=== PATIENT | female | born 1940 | race Caucasian/White ===

== ENCOUNTER 2016-07-07 06:48 | Emergency (ER) | payer MEDICARE, MEDICAID ==
[2016-07-07 08:17] LABS: BASO # 0.1 K/mm3 (0.0-0.2); EOS # 0.5 K/mm3 (0.0-0.50); EOS % 5.5 % (0.0-3.0); LARGE UNSTAINED CELL # 0.2 K/mm3 (0.0-0.4); LARGE UNSTAINED CELL % 2.6 % (0.0-4.0); LYMPH # 2.3 K/mm3 (1.5-4.5); LYMPH % 24.1 % (24.0-44.0); MEAN CORPUSCULAR HEMOGLOBIN 29.3 pg (27.0-33.0); MEAN CORPUSCULAR VOLUME 94.3 fl (80.0-96.0); MONO # 0.5 K/mm3 (0.0-0.8); MONO % 5.3 % (0.0-5.0); NEUTROPHILS # 5.3 K/mm3 (1.8-7.7); NEUTROPHILS % 61.6 % (36.0-66.0); PLATELET COUNT, AUTOMATED 350 k/mm3 (150-450); RED CELL DISTRIBUTION WIDTH 13.3 % (11.5-14.5); WHITE BLOOD COUNT 8.6 K/mm3 (4.0-10.0)
[2016-07-07 08:34] LABS: ANION GAP 7 MEQ/L (8-16); BLOOD UREA NITROGEN 20 MG/DL (7-18); CALCIUM LEVEL 9.4 MG/DL (8.8-10.2); CARBON DIOXIDE LEVEL 30 MEQ/L (21-32); CHLORIDE LEVEL 105 MEQ/L (98-107); CREATININE FOR GFR 0.85 MG/DL (0.55-1.02); GLOMERULAR FILTRATION RATE > 60.0 (>39); GLUCOSE, FASTING 104 MG/DL (83-110); POTASSIUM SERUM 4.5 MEQ/L (3.5-5.1); SODIUM LEVEL 142 MEQ/L (136-145)
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
--- NOTE | 2016-07-07 09:32 | REP ---
LUMBAR SPINE COMPLETE: 07/07/2016 CLINICAL HISTORY: Low back pain. FINDINGS: There were no prior studies. The five views demonstrate grade 2 compressions of L3 and L5. There is grade 1 inferior endplate compression of L1. Age of these is unknown but I suspect old sclerotic endplates. There is facet arthritis at L4-5 and L5-S1, less at L3-4. The disc spaces are narrowed at all levels, sparing the L3-4 level and L1-2. Straightening of the spine with loss of lordosis noted. There is no spondylolysis or spondylolisthesis. Bilateral hip arthritis noted, right much greater than left, SI joints sclerotic at the iliac margins. Sacral ala and foramina intact. IMPRESSION: 1. Diffuse degenerative disc changes and facet arthritis as described with grade 2 compressions of L3 and L5. Minimal endplate grade 1 compression of L1. No prior studies to verify age but the sclerosis of the endplates suggest that these may be old. No spondylolysis or spondylolisthesis. Signed by Del Reagan MD 07/07/2016 09:37 A
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
== END 2016-07-07 09:14 | disposition home or self-care (01) ==
LOC: M ED 06:48
DX: M54.32 Sciatica, left side (principal); I10 Essential (primary) hypertension; J44.9 Chronic obstructive pulmonary disease, unspecified; K21.9 Gastro-esophageal reflux disease without esophagitis; E03.9 Hypothyroidism, unspecified; Z85.42 Personal history of malignant neoplasm of other parts of uterus; Z79.52 Long term (current) use of systemic steroids; Z79.899 Other long term (current) drug therapy; Z88.5 Allergy status to narcotic agent; Z88.6 Allergy status to analgesic agent

== ENCOUNTER 2016-08-14 18:04 | Emergency (ER) | payer MEDICARE, MEDICAID ==
[2016-08-14 19:18] LABS: BASO % 0.8 % (0.0-1.0); EOS % 0.7 % (0.0-3.0); LARGE UNSTAINED CELL # 0.2 K/mm3 (0.0-0.4); LARGE UNSTAINED CELL % 4.4 % (0.0-4.0); LYMPH # 1.4 K/mm3 (1.5-4.5); LYMPH % 34.8 % (24.0-44.0); MEAN CORPUSCULAR HEMOGLOBIN 29.3 pg (27.0-33.0); MEAN CORPUSCULAR HGB CONC 32.7 g/dl (32.0-36.5); MEAN CORPUSCULAR VOLUME 89.7 fl (80.0-96.0); MONO # 0.3 K/mm3 (0.0-0.8); MONO % 6.6 % (0.0-5.0); NEUTROPHILS # 2.2 K/mm3 (1.8-7.7); NEUTROPHILS % 52.8 % (36.0-66.0); PLATELET COUNT, AUTOMATED 266 k/mm3 (150-450); RED CELL DISTRIBUTION WIDTH 12.7 % (11.5-14.5); WHITE BLOOD COUNT 4.2 K/mm3 (4.0-10.0)
[2016-08-14] MEDS ORDERED: dexameTHASONE 4 MG/ML 1ML VIAL (J1100) As Ordered ONE (19:20)
[2016-08-14 19:26] LABS: ALBUMIN 3.6 GM/DL (3.2-5.2); ALBUMIN/GLOBULIN RATIO 0.88 (1.00-1.93); ALKALINE PHOSPHATASE 160 U/L (45-117); ALT/SGPT 74 U/L (12-78); AMYLASE 62 U/L (25-115); ANION GAP 10 MEQ/L (8-16); AST/SGOT 107 U/L (15-37); BILIRUBIN,DIRECT 0.1 MG/DL (0.0-0.2); BILIRUBIN,TOTAL 0.4 MG/DL (0.2-1.0); BLOOD UREA NITROGEN 16 MG/DL (7-18); CALCIUM LEVEL 8.8 MG/DL (8.8-10.2); CARBON DIOXIDE LEVEL 27 MEQ/L (21-32); CHLORIDE LEVEL 104 MEQ/L (98-107); CREATININE FOR GFR 0.85 MG/DL (0.55-1.02); GLOMERULAR FILTRATION RATE > 60.0 (>39); GLUCOSE, FASTING 104 MG/DL (83-110); POTASSIUM SERUM 3.5 MEQ/L (3.5-5.1); SODIUM LEVEL 141 MEQ/L (136-145); TOTAL PROTEIN 7.7 GM/DL (6.4-8.2)
[2016-08-14] MEDS ORDERED: IPRATROPIUM 0.5MG/ALBUTEROL 2.5MG INH SOL UD 3ML (DUONEB)(J7620) As Ordered ONE (19:48)
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
--- NOTE | 2016-08-15 07:06 | REP ---
Chest x-ray: Two views. History: Cough. Findings: The lungs are symmetrically aerated and clear. Pleural angles are sharp. Heart size is normal. Pulmonary vasculature is not increased. There is an S-shaped mild thoracic scoliotic curvature. Degenerative changes are noted in the thoracic spine as well. Impression: No active cardiopulmonary disease. Signed by Deondre Ruggiero MD 08/15/2016 08:31 A
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
== END 2016-08-14 22:09 | disposition home or self-care (01) ==
LOC: M ED 18:04
DX: J20.9 Acute bronchitis, unspecified (principal); K52.9 Noninfective gastroenteritis and colitis, unspecified; I10 Essential (primary) hypertension; K21.9 Gastro-esophageal reflux disease without esophagitis; E03.9 Hypothyroidism, unspecified; J44.9 Chronic obstructive pulmonary disease, unspecified; Z85.42 Personal history of malignant neoplasm of other parts of uterus; Z92.240 Personal history of inhaled steroid therapy; Z79.899 Other long term (current) drug therapy; Z88.5 Allergy status to narcotic agent
CPT/HCPCS: 36415; 71020; 80048; 80076; 82150; 83605; 83690; 85025; 94640; 96361; 96374; 99284; J1100

== ENCOUNTER → 2016-12-08 | Outpatient (REF) | payer MEDICARE, MEDICAID ==
[2016-12-08 18:33] LABS: BASO % 0.4 % (0.0-1.0); EOS # 0.2 K/mm3 (0.0-0.50); EOS % 3.9 % (0.0-3.0); LARGE UNSTAINED CELL # 0.1 K/mm3 (0.0-0.4); LARGE UNSTAINED CELL % 1.9 % (0.0-4.0); LYMPH # 1.4 K/mm3 (1.5-4.5); LYMPH % 24.7 % (24.0-44.0); MEAN CORPUSCULAR HEMOGLOBIN 30.5 pg (27.0-33.0); MEAN CORPUSCULAR VOLUME 92.4 fl (80.0-96.0); MONO # 0.3 K/mm3 (0.0-0.8); MONO % 5.9 % (0.0-5.0); NEUTROPHILS # 3.4 K/mm3 (1.8-7.7); NEUTROPHILS % 63.2 % (36.0-66.0); PLATELET COUNT, AUTOMATED 303 k/mm3 (150-450); RED CELL DISTRIBUTION WIDTH 12.9 % (11.5-14.5); WHITE BLOOD COUNT 5.4 K/mm3 (4.0-10.0)
[2016-12-08 18:52] LABS: ANION GAP 8 MEQ/L (8-16); BLOOD UREA NITROGEN 20 MG/DL (7-18); CALCIUM LEVEL 9.8 MG/DL (8.8-10.2); CARBON DIOXIDE LEVEL 26 MEQ/L (21-32); CHLORIDE LEVEL 107 MEQ/L (98-107); CREATININE FOR GFR 0.77 MG/DL (0.55-1.02); GLOMERULAR FILTRATION RATE > 60.0 (>39); GLUCOSE, FASTING 85 MG/DL (83-110); SODIUM LEVEL 141 MEQ/L (136-145); T UPTAKE 32 % (30-39); THYROXINE (T4) 6.9 UG/DL (4.5-12.0)
[2016-12-08 18:53] LABS: POTASSIUM SERUM 5.3 MEQ/L (3.5-5.1)
== END ==
LOC: M LAB REF 16:35
PROVIDERS: ATTEND Physician Assistant
DX: I10 Essential (primary) hypertension (principal)

== ENCOUNTER 2017-03-13 13:39 | Emergency (ER) | payer MEDICARE, MEDICAID ==
[~2017-03-13] VITALS: Ht 157.5 cm; Wt 77.3 kg
[2017-03-13] MEDS ORDERED: PROAAER10 (13:55)
[2017-03-13] MEDS ORDERED: METO10TA2 (13:55)
[2017-03-13] MEDS ORDERED: LISI10TA4 (13:55)
[2017-03-13] MEDS ORDERED: OMEP20CA3 (13:55)
[2017-03-13 16:34] VITALS: BP 141/78
--- NOTE | 2017-03-13 16:48 | REP ---
Right ribs and PA chest: Right ribs four views: There is no rib fracture or other rib abnormality. 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 PA chest: Comparison is 08/14/2016. There is no pneumothorax, hemothorax or pulmonary contusion. Lung lozano are clear. Cardiac size is normal. The hali, mediastinum, bony thorax are otherwise unremarkable. Impression: Negative PA chest. Signed by Shawn Briseno MD 03/13/2017 04:09 P
== END 2017-03-13 16:35 | disposition home or self-care (01) ==
LOC: M ED 13:39
DX: R07.89 Other chest pain (principal); I10 Essential (primary) hypertension; Z87.820 Personal history of traumatic brain injury; Z85.42 Personal history of malignant neoplasm of other parts of uterus; Z79.899 Other long term (current) drug therapy

== ENCOUNTER → 2017-07-06 | Outpatient (REF) | payer MEDICARE ==
[2017-07-06 15:32] LABS: BASO % 0.3 % (0.0-1.0); EOS # 0.3 10^3/uL (0.0-0.50); EOS % 4.1 % (0.0-3.0); HEMATOCRIT 43.8 % (36.0-47.0); HEMOGLOBIN 13.9 g/dl (12.0-16.0); IMMATURE GRANULOCYTE % 0.3 % (0-0); LYMPH # 2.2 10^3/uL (1.5-4.5); LYMPH % 30.6 % (24.0-44.0); MEAN CORPUSCULAR HEMOGLOBIN 29.7 pg (27.0-33.0); MEAN CORPUSCULAR HGB CONC 31.7 g/dl (32.0-36.5); MEAN CORPUSCULAR VOLUME 93.6 fl (80.0-96.0); MONO # 0.6 10^3/uL (0.0-0.8); MONO % 8.8 % (0.0-5.0); NEUTROPHILS # 4.1 10^3/uL (1.8-7.7); NEUTROPHILS % 55.9 % (36.0-66.0); PLATELET COUNT, AUTOMATED 342 10^3/uL (150-450); RED BLOOD COUNT 4.68 10^6/uL (4.00-5.40); RED CELL DISTRIBUTION WIDTH 12.7 % (11.5-14.5); WHITE BLOOD COUNT 7.3 10^3/uL (4.0-10.0)
[2017-07-06 16:26] LABS: ALBUMIN/GLOBULIN RATIO 1.21 (1.00-1.93); ALKALINE PHOSPHATASE 132 U/L (45-117); ALT/SGPT 37 U/L (12-78); ANION GAP 8 MEQ/L (8-16); AST/SGOT 20 U/L (7-37); BILIRUBIN,TOTAL 0.4 MG/DL (0.2-1.0); BLOOD UREA NITROGEN 21 MG/DL (7-18); CALCIUM LEVEL 9.1 MG/DL (8.8-10.2); CARBON DIOXIDE LEVEL 30 MEQ/L (21-32); CHLORIDE LEVEL 106 MEQ/L (98-107); CHOLESTEROL LEVEL 239 MG/DL (<200); CHOLESTEROL RISK RATIO 3.983 (<5); CREATININE FOR GFR 0.87 MG/DL (0.55-1.02); FREE T4 0.81 NG/DL (0.76-1.46); GLOMERULAR FILTRATION RATE > 60.0 (>39); GLUCOSE, FASTING 97 MG/DL (83-110); HDL CHOLESTEROL 60 MG/DL (>40); LDL CHOLESTEROL 151.6 MG/DL (<100); NON-HDL-C 179 MG/DL; POTASSIUM SERUM 4.5 MEQ/L (3.5-5.1); SODIUM LEVEL 144 MEQ/L (136-145); TOTAL PROTEIN 7.3 GM/DL (6.4-8.2); TRIGLYCERIDES LEVEL 137 MG/DL (<150)
== END ==
LOC: M SFHCSACK 09:08
DX: I10 Essential (primary) hypertension (principal); Z13.220 Encounter for screening for lipoid disorders; E03.9 Hypothyroidism, unspecified; Z13.21 Encounter for screening for nutritional disorder
CPT/HCPCS: 84443

== ENCOUNTER → 2017-08-29 | Day surgery (SDC) | payer MEDICARE, MEDICAID ==
[~2017-08-29] MED LIST: ACETAMINOPHEN 325 MG TAB PO; AcetaZOLAMIDE 500 MG ER CAP PO; CYCLOPENTOLATE 2% OPHTH SOLN 2ML BTL As Ordered; KETOROLAC 0.5% OPHTH SOLN OD; LIDOCAINE 1% MDV 20ML VIAL SQ; MIDAZOLAM INJ 2 MG/2 ML VIAL (J2250) As Ordered; OFLOXACIN 0.3 % (OCUFLOX) OPTH SOL 5ML As Ordered; PHENYLEPHRINE 2.5% OPHTH SOL 2ML As Ordered; PROPARACAINE 0.5% OPHTH SOL 15ML OD; TRIMETHOBENZAMIDE 300 MG CAP PO; TROPICAMIDE 1% OPHTH SOLN 2ML As Ordered; fentaNYL 100 MCG/2 ML INJECTION (J3010) As Ordered
[2017-08-29] MEDS: TROPICAMIDE 1% OPHTH SOLN 2ML OD (07:00)
[2017-08-29] MEDS: PHENYLEPHRINE 2.5% OPHTH SOL 2ML OD (07:00)
[2017-08-29] MEDS: LIDOCAINE 3.5 % 1ML OPHTH TOPICAL GEL OU (07:00)
[2017-08-29] MEDS: OFLOXACIN 0.3 % (OCUFLOX) OPTH SOL 5ML OD (07:00)
[2017-08-29] MEDS: CYCLOPENTOLATE 2% OPHTH SOLN 2ML BTL OD (07:00)
[2017-08-29] MEDS: PHENYLEPHRINE HCL 10 % OPHTH. SOL 5ML OD (10:07)
[2017-08-29] MEDS: POVIDONE-IODINE 5% OPHTH PREP SOL 30ML As Ordered (10:32)
[2017-08-29] MEDS: HEALON DUET (HEALON 10MG/ML 0.55ML & HEALON ENDOCOAT 30MG/ML 0.85ML) As Ordered (10:38)
[2017-08-29] MEDS: LIDOCAINE 1% SDV 5 ML VIAL As Ordered (10:38)
[2017-08-29] MEDS: CEFUROXIME 1MG/0.1ML INTRACAMERAL INJ As Ordered (10:38)
[2017-08-29] MEDS: BALANCED SALT IRRIGATION SOLUTION 500ML BAG (FOR OR EYE MACHINE) As Ordered (10:38)
== END | disposition home or self-care (01) ==
LOC: M SDC 09:04
DX: H25.11 Age-related nuclear cataract, right eye (principal); J44.9 Chronic obstructive pulmonary disease, unspecified; I10 Essential (primary) hypertension; M19.90 Unspecified osteoarthritis, unspecified site; K21.9 Gastro-esophageal reflux disease without esophagitis; E03.9 Hypothyroidism, unspecified; M85.80 Other specified disorders of bone density and structure, unspecified site; R32 Unspecified urinary incontinence; Z79.899 Other long term (current) drug therapy; Z88.8 Allergy status to other drugs, medicaments and biological substances; Z88.5 Allergy status to narcotic agent
CPT/HCPCS: 66984

== ENCOUNTER 2017-09-05 10:43 | Day surgery (SDC) | payer MEDICARE, MEDICAID ==
[~2017-09-05 10:43] MED LIST changes: -AcetaZOLAMIDE 500 MG ER CAP PO; -CYCLOPENTOLATE 2% OPHTH SOLN 2ML BTL As Ordered; +CYCLOPENTOLATE 2% OPHTH SOLN 2ML BTL OS; -KETOROLAC 0.5% OPHTH SOLN OD; -LIDOCAINE 1% MDV 20ML VIAL SQ; -MIDAZOLAM INJ 2 MG/2 ML VIAL (J2250) As Ordered; -OFLOXACIN 0.3 % (OCUFLOX) OPTH SOL 5ML As Ordered; -PHENYLEPHRINE 2.5% OPHTH SOL 2ML As Ordered; +PHENYLEPHRINE HCL 10 % OPHTH. SOL 5ML OS; -PROPARACAINE 0.5% OPHTH SOL 15ML OD; +PROPARACAINE 0.5% OPHTH SOL 15ML OS; -TRIMETHOBENZAMIDE 300 MG CAP PO; -TROPICAMIDE 1% OPHTH SOLN 2ML As Ordered; -fentaNYL 100 MCG/2 ML INJECTION (J3010) As Ordered
[2017-09-05] MEDS ORDERED: TRIMETHOBENZAMIDE 300 MG CAP PO (11:00)
[2017-09-05] MEDS: TROPICAMIDE 1% OPHTH SOLN 2ML OS (12:10)
[2017-09-05] MEDS: OFLOXACIN 0.3 % (OCUFLOX) OPTH SOL 5ML OS (12:10)
[2017-09-05] MEDS: LIDOCAINE 3.5 % 1ML OPHTH TOPICAL GEL OU (12:10)
[2017-09-05] MEDS: PHENYLEPHRINE 2.5% OPHTH SOL 2ML OS (12:10)
[2017-09-05] MEDS ORDERED: MIDAZOLAM INJ 2 MG/2 ML VIAL (J2250) As Ordered (12:33)
[2017-09-05] MEDS ORDERED: fentaNYL 100 MCG/2 ML INJECTION (J3010) As Ordered (12:33)
[2017-09-05] MEDS: LIDOCAINE 1% SDV 5 ML VIAL As Ordered (12:55)
[2017-09-05] MEDS: POVIDONE-IODINE 5% OPHTH PREP SOL 30ML As Ordered (12:55)
[2017-09-05] MEDS: BALANCED SALT IRRIGATION SOLUTION 500ML BAG (FOR OR EYE MACHINE) As Ordered (13:06)
[2017-09-05] MEDS: CEFUROXIME 1MG/0.1ML INTRACAMERAL INJ As Ordered (13:06)
[2017-09-05] MEDS: HEALON DUET (HEALON 10MG/ML 0.55ML & HEALON ENDOCOAT 30MG/ML 0.85ML) As Ordered (13:06)
[2017-09-05] MEDS: AcetaZOLAMIDE 500 MG ER CAP PO (13:53)
[2017-09-05] MEDS: KETOROLAC 0.5% OPHTH SOLN OS (13:53)
== END 2017-09-05 14:16 | disposition home or self-care (01) ==
LOC: M SDC 10:43
DX: H25.12 Age-related nuclear cataract, left eye (principal); I10 Essential (primary) hypertension; E03.9 Hypothyroidism, unspecified; K21.9 Gastro-esophageal reflux disease without esophagitis; Z79.899 Other long term (current) drug therapy; Z88.8 Allergy status to other drugs, medicaments and biological substances
CPT/HCPCS: 66984

== ENCOUNTER → 2017-10-15 | Outpatient (REF) | payer MEDICARE ==
[2017-10-15 15:36] LABS: BASO % 0.4 % (0.0-1.0); EOS # 0.2 10^3/uL (0.0-0.50); EOS % 2.6 % (0.0-3.0); HEMOGLOBIN 13.3 g/dl (12.0-15.5); IMMATURE GRANULOCYTE % 0.4 % (0-3.0); LYMPH # 2.6 10^3/uL (1.5-4.5); LYMPH % 31.6 % (24.0-44.0); MEAN CORPUSCULAR HEMOGLOBIN 29.7 pg (27.0-33.0); MEAN CORPUSCULAR HGB CONC 31.7 g/dl (32.0-36.5); MEAN CORPUSCULAR VOLUME 93.8 fl (80.0-96.0); MONO # 0.6 10^3/uL (0.0-0.8); MONO % 7.6 % (0.0-5.0); NEUTROPHILS # 4.7 10^3/uL (1.8-7.7); NEUTROPHILS % 57.4 % (36.0-66.0); PLATELET COUNT, AUTOMATED 337 10^3/uL (150-450); RED BLOOD COUNT 4.48 10^6/uL (4.00-5.40); RED CELL DISTRIBUTION WIDTH 13.3 % (11.5-14.5); WHITE BLOOD COUNT 8.1 10^3/uL (4.0-10.0)
[2017-10-15 16:07] LABS: FREE T4 1.03 NG/DL (0.76-1.46)
[2017-10-15 16:09] LABS: TOTAL 25(OH) VITAMIN D 60.2 NG/ML (30.0-100.0)
== END ==
LOC: M SFHCSACK 08:56
DX: I10 Essential (primary) hypertension (principal); E03.9 Hypothyroidism, unspecified; E55.9 Vitamin D deficiency, unspecified
CPT/HCPCS: 84443

== ENCOUNTER → 2018-01-14 | Outpatient (REF) | payer MEDICARE, MEDICAID ==
[2018-01-14 14:36] LABS: BASO % 0.3 % (0.0-1.0); EOS # 0.2 10^3/uL (0.0-0.50); EOS % 3.1 % (0.0-3.0); HEMATOCRIT 40.4 % (36.0-47.0); HEMOGLOBIN 12.8 g/dl (12.0-15.5); IMMATURE GRANULOCYTE % 0.5 % (0-3.0); LYMPH % 37.8 % (24.0-44.0); MEAN CORPUSCULAR HEMOGLOBIN 29.5 pg (27.0-33.0); MEAN CORPUSCULAR HGB CONC 31.7 g/dl (32.0-36.5); MEAN CORPUSCULAR VOLUME 93.1 fl (80.0-96.0); MONO # 0.7 10^3/uL (0.0-0.8); MONO % 8.4 % (0.0-5.0); NEUTROPHILS # 3.9 10^3/uL (1.8-7.7); NEUTROPHILS % 49.9 % (36.0-66.0); PLATELET COUNT, AUTOMATED 333 10^3/uL (150-450); RED BLOOD COUNT 4.34 10^6/uL (4.00-5.40); RED CELL DISTRIBUTION WIDTH 12.9 % (11.5-14.5); WHITE BLOOD COUNT 7.9 10^3/uL (4.0-10.0)
[2018-01-14 15:19] LABS: ALBUMIN 3.5 GM/DL (3.2-5.2); ALKALINE PHOSPHATASE 134 U/L (45-117); ALT/SGPT 26 U/L (12-78); ANION GAP 9 MEQ/L (8-16); AST/SGOT 19 U/L (7-37); BILIRUBIN,TOTAL 0.3 MG/DL (0.2-1.0); BLOOD UREA NITROGEN 20 MG/DL (7-18); CALCIUM LEVEL 8.9 MG/DL (8.8-10.2); CARBON DIOXIDE LEVEL 27 MEQ/L (21-32); CHLORIDE LEVEL 108 MEQ/L (98-107); CHOLESTEROL LEVEL 255 MG/DL (<200); CHOLESTEROL RISK RATIO 3.984 (<5); CREATININE FOR GFR 0.79 MG/DL (0.55-1.30); FREE T4 1.22 NG/DL (0.76-1.46); GLOMERULAR FILTRATION RATE > 60.0 (>39); GLUCOSE, FASTING 91 MG/DL (70-100); HDL CHOLESTEROL 64 MG/DL (>40); LDL CHOLESTEROL 172.6 MG/DL (<100); NON-HDL-C 191 MG/DL; SODIUM LEVEL 144 MEQ/L (136-145); THYROID STIMULATING HORMONE 0.824 uIU/ML (0.358-3.740); TRIGLYCERIDES LEVEL 92 MG/DL (<150)
[2018-01-14 15:21] LABS: POTASSIUM SERUM 5.2 MEQ/L (3.5-5.1)
== END ==
LOC: M SFHCSACK 09:16
DX: E78.2 Mixed hyperlipidemia (principal); I10 Essential (primary) hypertension; E03.9 Hypothyroidism, unspecified
CPT/HCPCS: 84443

== ENCOUNTER 2018-01-17 08:21 | Emergency (ER) | payer MEDICARE, MEDICAID ==
[2018-01-17] MEDS: FAMOTIDINE INJ 20MG/2ML VIAL (S0028) IV (08:54)
[2018-01-17] MEDS: diphenhydrAMINE INJ 50MG/ML VIAL (J1200) IV (08:54)
[2018-01-17] MEDS: methylPREDNISolone INJ 125 MG/2 ML VIAL (J2930) IV (08:54)
== END 2018-01-17 12:12 | disposition home or self-care (01) ==
LOC: M ED 08:21
DX: T78.3XXA Angioneurotic edema, initial encounter (principal); T39.315A Adverse effect of propionic acid derivatives, initial encounter; Y92.9 Unspecified place or not applicable; Y93.9 Activity, unspecified; I10 Essential (primary) hypertension; K21.9 Gastro-esophageal reflux disease without esophagitis; J44.9 Chronic obstructive pulmonary disease, unspecified; M19.90 Unspecified osteoarthritis, unspecified site; H25.9 Unspecified age-related cataract; Z85.41 Personal history of malignant neoplasm of cervix uteri; Z79.899 Other long term (current) drug therapy; Z88.5 Allergy status to narcotic agent; Z88.8 Allergy status to other drugs, medicaments and biological substances
CPT/HCPCS: J1200

== ENCOUNTER → 2018-09-06 | Outpatient (REF) | payer MEDICARE ==
[~2018-09-06] MED LIST changes: -ACETAMINOPHEN 325 MG TAB PO; +ALEV220T26 PO; +BENA25CA4 PO; +CO Q100C10 PO; -CYCLOPENTOLATE 2% OPHTH SOLN 2ML BTL OS; +DRIS50003 PO; +GLUC15002 PO; +IBUP1TAB6 PO; +LEVO-84; +LISI10TA4; +METO10TA2; +OMEP20CA3; -PHENYLEPHRINE HCL 10 % OPHTH. SOL 5ML OS; +PROAAER10; -PROPARACAINE 0.5% OPHTH SOL 15ML OS; +VENTAER IN
[2018-09-06 15:17] LABS: BASO % 0.4 % (0.0-1.0); EOS # 0.2 10^3/uL (0.0-0.50); EOS % 2.2 % (0.0-3.0); HEMATOCRIT 42.5 % (36.0-47.0); HEMOGLOBIN 13.1 g/dl (12.0-15.5); LYMPH # 2.3 10^3/uL (1.5-4.5); LYMPH % 28.7 % (24.0-44.0); MEAN CORPUSCULAR HEMOGLOBIN 29.2 pg (27.0-33.0); MEAN CORPUSCULAR HGB CONC 30.8 g/dl (32.0-36.5); MEAN CORPUSCULAR VOLUME 94.9 fl (80.0-96.0); MONO # 0.7 10^3/uL (0.0-0.8); NEUTROPHILS # 4.9 10^3/uL (1.8-7.7); NEUTROPHILS % 60.2 % (36.0-66.0); PLATELET COUNT, AUTOMATED 341 10^3/uL (150-450); RED BLOOD COUNT 4.48 10^6/uL (4.00-5.40); WHITE BLOOD COUNT 8.2 10^3/uL (4.0-10.0)
[2018-09-06 15:31] LABS: ALBUMIN 3.9 GM/DL (3.2-5.2); ALT/SGPT 44 U/L (12-78); BILIRUBIN,TOTAL 0.4 MG/DL (0.2-1.0); BLOOD UREA NITROGEN 24 MG/DL (7-18); CALCIUM LEVEL 9.4 MG/DL (8.8-10.2); CARBON DIOXIDE LEVEL 25 MEQ/L (21-32); CHLORIDE LEVEL 104 MEQ/L (98-107); CHOLESTEROL LEVEL 306 MG/DL (<200); CHOLESTEROL RISK RATIO 4.135 (<5); CREATININE FOR GFR 0.85 MG/DL (0.55-1.30); FREE T4 1.13 NG/DL (0.76-1.46); GLOMERULAR FILTRATION RATE > 60.0 (>39); GLUCOSE, FASTING 103 MG/DL (70-100); HDL CHOLESTEROL 74 MG/DL (>40); LDL CHOLESTEROL 209 MG/DL (<100); NON-HDL-C 232 MG/DL; POTASSIUM SERUM 4.6 MEQ/L (3.5-5.1); SODIUM LEVEL 139 MEQ/L (136-145); TOTAL PROTEIN 7.4 GM/DL (6.4-8.2); TRIGLYCERIDES LEVEL 113 MG/DL (<150)
[2018-09-06 15:32] LABS: TOTAL 25(OH) VITAMIN D 78.4 NG/ML (30.0-100.0)
== END ==
LOC: M SFHCSACK 10:14
PROVIDERS: ATTEND Physician Assistant
DX: I10 Essential (primary) hypertension (principal); E78.2 Mixed hyperlipidemia; E03.9 Hypothyroidism, unspecified; E55.9 Vitamin D deficiency, unspecified

== ENCOUNTER → 2019-03-17 | Outpatient (CLI) | payer MEDICARE, MEDICAID ==
[~2019-03-17] MED LIST changes: -OMEP20CA3; +OMEP20CA4
[2019-03-17 14:19] LABS: BASO % 0.3 % (0.0-1.0); EOS # 0.2 10^3/uL (0.0-0.5); EOS % 1.8 % (0.0-3.0); HEMATOCRIT 43.4 % (36.0-47.0); HEMOGLOBIN 13.7 g/dl (12.0-15.5); LYMPH # 2.3 10^3/uL (1.5-5.0); LYMPH % 24.2 % (24.0-44.0); MEAN CORPUSCULAR HGB CONC 31.6 g/dl (32.0-36.5); MONO # 0.8 10^3/uL (0.0-0.8); MONO % 7.9 % (0.0-5.0); NEUTROPHILS # 6.2 10^3/uL (1.5-8.5); NEUTROPHILS % 65.4 % (36.0-66.0); PLATELET COUNT, AUTOMATED 358 10^3/uL (150-450); RED BLOOD COUNT 4.57 10^6/uL (4.00-5.40); WHITE BLOOD COUNT 9.4 10^3/uL (4.0-10.0)
[2019-03-17 14:34] LABS: ALBUMIN 3.8 GM/DL (3.2-5.2); ALT/SGPT 23 U/L (12-78); BILIRUBIN,TOTAL 0.3 MG/DL (0.2-1.0); BLOOD UREA NITROGEN 18 MG/DL (7-18); CALCIUM LEVEL 10.8 MG/DL (8.8-10.2); CARBON DIOXIDE LEVEL 32 MEQ/L (21-32); CHLORIDE LEVEL 102 MEQ/L (98-107); CHOLESTEROL LEVEL 285 MG/DL (<200); CHOLESTEROL RISK RATIO 3.958 (<5); CREATININE FOR GFR 0.86 MG/DL (0.55-1.30); GLOMERULAR FILTRATION RATE > 60.0 (>39); GLUCOSE, FASTING 95 MG/DL (70-100); HDL CHOLESTEROL 72 MG/DL (>40); LDL CHOLESTEROL 191 MG/DL (<100); NON-HDL-C 213 MG/DL; POTASSIUM SERUM 4.3 MEQ/L (3.5-5.1); SODIUM LEVEL 140 MEQ/L (136-145); TOTAL 25(OH) VITAMIN D 83.8 NG/ML (30.0-100.0); TOTAL PROTEIN 7.6 GM/DL (6.4-8.2); TRIGLYCERIDES LEVEL 108 MG/DL (<150)
[2019-03-17 15:02] LABS: HEMOGLOBIN A1c 5.6 %
== END ==
LOC: M WUC 11:43
PROVIDERS: ATTEND Physician Assistant
DX: E78.2 Mixed hyperlipidemia (principal); I10 Essential (primary) hypertension; E03.9 Hypothyroidism, unspecified; E55.9 Vitamin D deficiency, unspecified; R73.01 Impaired fasting glucose; Z79.899 Other long term (current) drug therapy

== ENCOUNTER → 2020-10-09 | Outpatient (REF) | payer MEDICARE, MEDICAID ==
[~2020-10-09] MED LIST changes: +LISI10TA22; -LISI10TA4; +OMEP1CAP73; -OMEP20CA4
== END ==
LOC: M LAB REF 17:20
PROVIDERS: ATTEND Physician Assistant
DX: N39.0 Urinary tract infection, site not specified (principal)

== ENCOUNTER 2021-05-18 19:52 | Emergency (ER) | payer MEDICARE, MEDICAID ==
[~2021-05-18] VITALS: Ht 154.9 cm; Wt 73.2 kg
[2021-05-18] MEDS ORDERED: diphenhydrAMINE 50MG/ML VIAL (J1200) IV ONE (20:30)
[2021-05-18] MEDS ORDERED: FAMOTIDINE INJ 20MG/2ML VIAL (S0028 PER 1) IVP ONE (20:30)
[2021-05-18] MEDS ORDERED: methylPREDNISolone 125MG 2ML VIAL IV ONE (20:30)
[2021-05-18] MEDS ORDERED: NS 1,000 ML IV SCH (20:30)
[2021-05-18] MEDS ORDERED: LABETALOL 100MG/20ML VIAL IV STA (21:48)
[2021-05-18 23:06] VITALS: BP 196/84
[2021-05-18] MEDS ORDERED: PRED20TA PO (23:16)
[2021-05-18] MEDS ORDERED: BENA25CA4 PO (23:16)
[2021-05-19 00:20] VITALS: BP 162/77
== END 2021-05-19 01:06 | disposition home or self-care (01) ==
LOC: M ED 19:52
DX: T78.3XXA Angioneurotic edema, initial encounter (principal); R22.0 Localized swelling, mass and lump, head; I11.9 Hypertensive heart disease without heart failure; Z88.8 Allergy status to other drugs, medicaments and biological substances
CPT/HCPCS: 93041; 94760; 96361; 96374; 96375; 99285; J1200; J2930

== ENCOUNTER 2021-07-09 12:08 | Emergency (ER) | payer MEDICARE, MEDICAID ==
[~2021-07-09] VITALS: Ht 154.9 cm; Wt 74.9 kg
[~2021-07-09 12:08] MED LIST changes: +PRED20TA PO
[2021-07-09 14:41] LABS: BASO % 0.4 % (0.0-1.0); EOS # 0.2 10^3/uL (0.0-0.5); EOS % 1.9 % (0.0-3.0); HEMATOCRIT 43.4 % (36.0-47.0); HEMOGLOBIN 13.6 g/dl (12.0-15.5); LYMPH # 2.5 10^3/uL (1.5-5.0); LYMPH % 31.4 % (24.0-44.0); MEAN CORPUSCULAR HEMOGLOBIN 30.2 pg (27.0-33.0); MEAN CORPUSCULAR HGB CONC 31.3 g/dl (32.0-36.5); MEAN CORPUSCULAR VOLUME 96.2 fl (80.0-96.0); MONO # 0.8 10^3/uL (0.0-0.8); MONO % 9.6 % (2.0-8.0); NEUTROPHILS # 4.4 10^3/uL (1.5-8.5); NEUTROPHILS % 56.3 % (36.0-66.0); PLATELET COUNT, AUTOMATED 305 10^3/uL (150-450); RED BLOOD COUNT 4.51 10^6/uL (4.00-5.40); WHITE BLOOD COUNT 7.8 10^3/uL (4.0-10.0)
[2021-07-09 15:12] LABS: ALBUMIN 3.5 GM/DL (3.2-5.2); ALT/SGPT 21 U/L (12-78); BILIRUBIN,DIRECT < 0.1 MG/DL (0.0-0.2); BILIRUBIN,TOTAL 0.3 MG/DL (0.2-1.0); BLOOD UREA NITROGEN 18 MG/DL (7-18); CALCIUM LEVEL 9.2 MG/DL (8.8-10.2); CARBON DIOXIDE LEVEL 27 MEQ/L (21-32); CHLORIDE LEVEL 108 MEQ/L (98-107); CREATININE FOR GFR 0.74 MG/DL (0.55-1.30); GLOMERULAR FILTRATION RATE > 60.0 (>32); GLUCOSE, FASTING 107 MG/DL (70-100); NT-PRO BNP 121 PG/ML (<450); POTASSIUM SERUM 5.2 MEQ/L (3.5-5.1); SODIUM LEVEL 141 MEQ/L (136-145); TOTAL PROTEIN 7.8 GM/DL (6.4-8.2)
[2021-07-09 16:39] VITALS: BP 170/90
== END 2021-07-09 16:41 | disposition home or self-care (01) ==
LOC: M ED 12:08
DX: R22.41 Localized swelling, mass and lump, right lower limb (principal); R03.0 Elevated blood-pressure reading, without diagnosis of hypertension; I10 Essential (primary) hypertension; E78.5 Hyperlipidemia, unspecified; K21.9 Gastro-esophageal reflux disease without esophagitis; J44.9 Chronic obstructive pulmonary disease, unspecified; Z88.6 Allergy status to analgesic agent; Z88.5 Allergy status to narcotic agent

== ENCOUNTER → 2021-07-20 | Outpatient (CLI) | payer MEDICARE, MEDICAID ==
[2021-07-20 18:55] LABS: HEMOGLOBIN A1c 5.9 %
[2021-07-20 18:56] LABS: BLOOD UREA NITROGEN 17 MG/DL (7-18); CALCIUM LEVEL 9.6 MG/DL (8.8-10.2); CARBON DIOXIDE LEVEL 27 MEQ/L (21-32); CHLORIDE LEVEL 109 MEQ/L (98-107); CREATININE FOR GFR 0.86 MG/DL (0.55-1.30); GLOMERULAR FILTRATION RATE > 60.0 (>32); GLUCOSE, FASTING 105 MG/DL (70-100); POTASSIUM SERUM 4.5 MEQ/L (3.5-5.1); SODIUM LEVEL 140 MEQ/L (136-145)
== END ==
LOC: M RAD 16:04
PROVIDERS: ATTEND Family Medicine
DX: M17.0 Bilateral primary osteoarthritis of knee (principal); M19.071 Primary osteoarthritis, right ankle and foot; M19.072 Primary osteoarthritis, left ankle and foot; M79.89 Other specified soft tissue disorders; M79.604 Pain in right leg; E03.9 Hypothyroidism, unspecified; I10 Essential (primary) hypertension; E55.9 Vitamin D deficiency, unspecified; Z13.1 Encounter for screening for diabetes mellitus; Z79.899 Other long term (current) drug therapy

== ENCOUNTER 2021-09-18 11:27 | Emergency (ER) | payer MEDICARE, MEDICAID ==
[~2021-09-18] VITALS: Ht 157.5 cm; Wt 72.7 kg
[2021-09-18] MEDS ORDERED: NS 1,000 ML IV ONE (12:20)
[2021-09-18] MEDS ORDERED: ONDANSETRON 4MG/2ML VIAL IV ONE (12:20)
[2021-09-18 13:28] LABS: ALBUMIN 3.6 GM/DL (3.2-5.2); ALT/SGPT 23 U/L (12-78); BILIRUBIN,DIRECT < 0.1 MG/DL (0.0-0.2); BILIRUBIN,TOTAL 0.5 MG/DL (0.2-1.0); BLOOD UREA NITROGEN 12 MG/DL (7-18); CALCIUM LEVEL 9.4 MG/DL (8.8-10.2); CARBON DIOXIDE LEVEL 27 MEQ/L (21-32); CHLORIDE LEVEL 109 MEQ/L (98-107); CREATININE FOR GFR 0.85 MG/DL (0.55-1.30); GLOMERULAR FILTRATION RATE > 60.0 (>32); GLUCOSE, FASTING 101 MG/DL (70-100); LIPASE 58 U/L (73-393); NT-PRO BNP 286 PG/ML (<450); POTASSIUM SERUM 5.5 MEQ/L (3.5-5.1); SODIUM LEVEL 141 MEQ/L (136-145); TOTAL PROTEIN 7.6 GM/DL (6.4-8.2)
[2021-09-18] MEDS ORDERED: ISOVUE-370 76% 100ML VIAL As Ordered ONE (13:35)
[2021-09-18 14:10] LABS: BASO % 0.3 % (0.0-1.0); EOS # 0.1 10^3/uL (0.0-0.5); EOS % 0.9 % (0.0-3.0); HEMATOCRIT 42.3 % (36.0-47.0); HEMOGLOBIN 13.3 g/dl (12.0-15.5); LYMPH # 1.6 10^3/uL (1.5-5.0); LYMPH % 25.2 % (24.0-44.0); MEAN CORPUSCULAR HEMOGLOBIN 30.1 pg (27.0-33.0); MEAN CORPUSCULAR HGB CONC 31.4 g/dl (32.0-36.5); MEAN CORPUSCULAR VOLUME 95.7 fl (80.0-96.0); MONO # 0.4 10^3/uL (0.0-0.8); MONO % 6.3 % (2.0-8.0); NEUTROPHILS # 4.3 10^3/uL (1.5-8.5); PLATELET COUNT, AUTOMATED 345 10^3/uL (150-450); RED BLOOD COUNT 4.42 10^6/uL (4.00-5.40); WHITE BLOOD COUNT 6.4 10^3/uL (4.0-10.0)
[2021-09-18 16:15] VITALS: BP 189/89
[2021-09-18] MEDS ORDERED: ONDA4TAB6 PO (16:18)
== END 2021-09-18 17:02 | disposition home or self-care (01) ==
LOC: M ED 11:27
DX: K52.9 Noninfective gastroenteritis and colitis, unspecified (principal); I10 Essential (primary) hypertension; E78.5 Hyperlipidemia, unspecified; J45.909 Unspecified asthma, uncomplicated; R94.31 Abnormal electrocardiogram [ECG] [EKG]; Z88.5 Allergy status to narcotic agent; Z88.8 Allergy status to other drugs, medicaments and biological substances
CPT/HCPCS: 74174; 80048; 80076; 83690; 83880; 84443; 84484; 85025; 93005; 93041; 94760; 96361; 96374; 99285; J2405; Q9967

== ENCOUNTER 2022-01-10 20:16 | Emergency (ER) | payer MEDICARE, MEDICAID ==
[~2022-01-10 20:16] MED LIST changes: +ONDA4TAB6 PO
[2022-01-10] MEDS ORDERED: NEOSPORIN OINT 0.9 GM PKT TOP ONE (22:40)
[2022-01-10] MEDS ORDERED: LIDOCAINE 1% MDV 20ML VIAL SC ONE (22:40)
[2022-01-10] MEDS ORDERED: BACI500O8 TOP (23:38)
[2022-01-11 00:06] VITALS: BP 178/90
== END 2022-01-11 00:36 | disposition home or self-care (01) ==
LOC: M ED 20:16
DX: S01.81XA Laceration without foreign body of other part of head, initial encounter (principal); S50.311A Abrasion of right elbow, initial encounter; W01.0XXA Fall on same level from slipping, tripping and stumbling without subsequent striking against object, initial encounter; Y92.410 Unspecified street and highway as the place of occurrence of the external cause; I10 Essential (primary) hypertension; E78.5 Hyperlipidemia, unspecified; K21.9 Gastro-esophageal reflux disease without esophagitis; E03.9 Hypothyroidism, unspecified; J44.9 Chronic obstructive pulmonary disease, unspecified; Z88.5 Allergy status to narcotic agent; Z88.8 Allergy status to other drugs, medicaments and biological substances; Z79.899 Other long term (current) drug therapy

== ENCOUNTER → 2022-09-05 | Outpatient (REF) | payer MEDICARE ==
[~2022-09-05] MED LIST changes: +BACI500O8 TOP
[2022-09-05 18:07] LABS: BLOOD UREA NITROGEN 19 MG/DL (9-23); CALCIUM LEVEL 9.5 MG/DL (8.3-10.6); CARBON DIOXIDE LEVEL 30 MMOL/L (20-31); CHLORIDE LEVEL 105 MMOL/L (98-107); CREATININE FOR GFR 0.79 MG/DL (0.55-1.30); GLOMERULAR FILTRATION RATE > 60.0 (>32); GLUCOSE, FASTING 97 MG/DL (74-106); POTASSIUM SERUM 4.2 MMOL/L (3.5-5.1); SODIUM LEVEL 143 MMOL/L (136-145)
[2022-09-05 18:09] LABS: THYROID STIMULATING HORMONE 2.358 uIU/ML (0.55-4.78)
== END ==
LOC: M LABWUC 16:08
PROVIDERS: ATTEND Family Medicine
DX: E03.9 Hypothyroidism, unspecified (principal); M79.89 Other specified soft tissue disorders

== ENCOUNTER 2023-02-20 15:23 | Emergency (ER) | payer MEDICARE, MEDICAID ==
[~2023-02-20] VITALS: Ht 157.5 cm; Wt 72.7 kg
[2023-02-20 15:23] VITALS: TEMP 98
[~2023-02-20 15:23] MED LIST changes: +BACI1TAB20 PO; +CEPH500C PO; +FURO20TA2 PO; +LEVO75TA4 PO; +OMEP-173 PO; +POTA-136 PO
[2023-02-20 19:02] LABS: BASO # 0.1 10^3/uL (0.0-0.2); BASO % 0.6 % (0.0-1.0); EOS # 0.2 10^3/uL (0.0-0.5); EOS % 2.1 % (0.0-3.0); HEMATOCRIT 41.4 % (36.0-47.0); HEMOGLOBIN 12.7 g/dl (12.0-15.5); LYMPH # 1.3 10^3/uL (1.5-5.0); LYMPH % 16.6 % (24.0-44.0); MEAN CORPUSCULAR HEMOGLOBIN 28.2 pg (27.0-33.0); MEAN CORPUSCULAR HGB CONC 30.7 g/dl (32.0-36.5); MEAN CORPUSCULAR VOLUME 91.8 fl (80.0-96.0); MONO # 0.6 10^3/uL (0.0-0.8); MONO % 7.9 % (2.0-8.0); NEUTROPHILS # 5.9 10^3/uL (1.5-8.5); NEUTROPHILS % 72.4 % (36.0-66.0); PLATELET COUNT, AUTOMATED 325 10^3/uL (150-450); RED BLOOD COUNT 4.51 10^6/uL (4.00-5.40); WHITE BLOOD COUNT 8.1 10^3/uL (4.0-10.0)
[2023-02-20 19:31] LABS: BLOOD UREA NITROGEN 20 MG/DL (9-23); CALCIUM LEVEL 9.1 MG/DL (8.3-10.6); CARBON DIOXIDE LEVEL 28 MMOL/L (20-31); CHLORIDE LEVEL 104 MMOL/L (98-107); CK-MB VALUE MASS < 1.0 NG/ML (<3.6); CREATININE FOR GFR 0.87 MG/DL (0.55-1.30); GLOMERULAR FILTRATION RATE > 60.0 (>32); GLUCOSE, FASTING 92 MG/DL (74-106); POTASSIUM SERUM 4.5 MMOL/L (3.5-5.1); SODIUM LEVEL 140 MMOL/L (136-145)
[2023-02-20 19:32] LABS: CPK CREATINE PHOSPHOKINASE 54 U/L (34-145); MB/CK RELATIVE INDEX 1.85 (< OR =4)
[2023-02-20] MEDS ORDERED: FUROSEMIDE 40MG/4ML VIAL IV ONE (20:25)
[2023-02-20] MEDS ORDERED: CEPHALEXIN 500 MG CAP PO ONE (20:25)
[2023-02-20] MEDS ORDERED: CEPH500C PO (20:29)
[2023-02-20 21:35] VITALS: BP 132/77; O2SAT 98
== END 2023-02-20 21:53 | disposition home or self-care (01) ==
LOC: M ED 15:23
DX: R22.43 Localized swelling, mass and lump, lower limb, bilateral (principal); L97.929 Non-pressure chronic ulcer of unspecified part of left lower leg with unspecified severity; J44.9 Chronic obstructive pulmonary disease, unspecified; K21.9 Gastro-esophageal reflux disease without esophagitis; I10 Essential (primary) hypertension; Z88.5 Allergy status to narcotic agent; Z88.6 Allergy status to analgesic agent; Z88.8 Allergy status to other drugs, medicaments and biological substances; Z79.83 Long term (current) use of bisphosphonates; Z79.899 Other long term (current) drug therapy
CPT/HCPCS: 71045; 73610; 80048; 82550; 82553; 83880; 84484; 85025; 96374; 99283; J1940

== ENCOUNTER → 2023-03-22 | Outpatient (CLI) | payer MEDICARE, MEDICAID | LOC: M WHC 11:44 | PROVIDERS: ATTEND Physician Assistant | DX: L97.822 Non-pressure chronic ulcer of other part of left lower leg with fat layer exposed (principal); R59.0 Localized enlarged lymph nodes ==

== ENCOUNTER 2023-04-15 14:22 | Emergency (ER) | payer MEDICARE, MEDICAID ==
[2023-04-15] MEDS ORDERED: methylPREDNISolone 125MG 2ML VIAL IV ONE (14:55)
[2023-04-15] MEDS ORDERED: IPRATROPIUM 0.5MG/ALBUTEROL 2.5MG INH SOL UD 3ML (DUONEB) NEB ONE (14:55)
[2023-04-15] MEDS ORDERED: ALBUTEROL SULFATE 2.5MG/0.5ML INH NEB SOLN INH ONE (14:55)
[2023-04-15 16:01] LABS: BASO % 0.7 % (0.0-1.0); EOS # 0.4 10^3/uL (0.0-0.5); EOS % 5.8 % (0.0-3.0); HEMATOCRIT 40.7 % (36.0-47.0); HEMOGLOBIN 12.8 g/dl (12.0-15.5); LYMPH # 1.5 10^3/uL (1.5-5.0); LYMPH % 24.2 % (24.0-44.0); MEAN CORPUSCULAR HEMOGLOBIN 28.8 pg (27.0-33.0); MEAN CORPUSCULAR HGB CONC 31.4 g/dl (32.0-36.5); MEAN CORPUSCULAR VOLUME 91.7 fl (80.0-96.0); MONO # 0.6 10^3/uL (0.0-0.8); MONO % 9.8 % (2.0-8.0); NEUTROPHILS # 3.5 10^3/uL (1.5-8.5); NEUTROPHILS % 58.7 % (36.0-66.0); PLATELET COUNT, AUTOMATED 358 10^3/uL (150-450); RED BLOOD COUNT 4.44 10^6/uL (4.00-5.40)
[2023-04-15 16:19] LABS: ALBUMIN 3.1 G/DL (3.2-5.2); ALKALINE PHOSPHATASE 152 U/L (46-116); ALT/SGPT < 9 U/L (7.0-40); AST/SGOT 25 U/L (<34); BILIRUBIN,DIRECT < 0.1 MG/DL (<0.4); BILIRUBIN,TOTAL 0.3 MG/DL (0.3-1.2); BLOOD UREA NITROGEN 15 MG/DL (9-23); CALCIUM LEVEL 8.8 MG/DL (8.3-10.6); CARBON DIOXIDE LEVEL 27 MMOL/L (20-31); CHLORIDE LEVEL 104 MMOL/L (98-107); CREATININE FOR GFR 0.69 MG/DL (0.55-1.30); GLOMERULAR FILTRATION RATE > 60.0 (>32); GLUCOSE, FASTING 93 MG/DL (74-106); POTASSIUM SERUM 4.4 MMOL/L (3.5-5.1); SODIUM LEVEL 140 MMOL/L (136-145); TOTAL PROTEIN 7.2 G/DL (5.7-8.2)
[2023-04-15 16:21] LABS: THYROID STIMULATING HORMONE 6.891 uIU/ML (0.55-4.78)
[2023-04-15 16:31] LABS: PROCALCITONIN <0.04 ng/ml
[2023-04-15] MEDS ORDERED: PRED20TA PO (17:35)
[2023-04-15 17:51] VITALS: BP 139/63; TEMP 97.6; O2SAT 96
== END 2023-04-15 18:10 | disposition home or self-care (01) ==
LOC: M ED 14:22
DX: J44.1 Chronic obstructive pulmonary disease with (acute) exacerbation (principal); B34.8 Other viral infections of unspecified site; I10 Essential (primary) hypertension; E78.5 Hyperlipidemia, unspecified; K21.9 Gastro-esophageal reflux disease without esophagitis; Z88.6 Allergy status to analgesic agent; Z88.8 Allergy status to other drugs, medicaments and biological substances; Z79.52 Long term (current) use of systemic steroids; Z79.83 Long term (current) use of bisphosphonates; Z79.899 Other long term (current) drug therapy
CPT/HCPCS: 71045; 80048; 80076; 83605; 83880; 84145; 84443; 85025; 87040; 87486; 87581; 87633; 87798; 93005; 93041; 94640; 94760; 96374; 99285; J2930

== ENCOUNTER → 2024-05-23 | Outpatient (CLI) | payer MEDICARE, MEDICAID ==
[~2024-05-23] MED LIST changes: +ONDA-282 PO; -ONDA4TAB6 PO
[2024-05-23 17:13] LABS: BASO % 0.7 % (0.0-1.0); EOS # 0.2 10^3/uL (0.0-0.5); EOS % 2.9 % (0.0-3.0); LYMPH # 1.6 10^3/uL (1.5-5.0); LYMPH % 25.8 % (24.0-44.0); MEAN CORPUSCULAR HEMOGLOBIN 29.5 pg (27.0-33.0); MEAN CORPUSCULAR HGB CONC 31.7 g/dl (32.0-36.5); MONO # 0.7 10^3/uL (0.0-0.8); MONO % 11.9 % (2.0-8.0); NEUTROPHILS # 3.5 10^3/uL (1.5-8.5); NEUTROPHILS % 57.6 % (36.0-66.0); PLATELET COUNT, AUTOMATED 360 10^3/uL (150-450); RED BLOOD COUNT 4.41 10^6/uL (4.00-5.40); WHITE BLOOD COUNT 6.1 10^3/uL (4.0-10.0)
[2024-05-23 17:37] LABS: ALBUMIN 3.3 G/DL (3.2-5.2); ALKALINE PHOSPHATASE 166 U/L (35-104); ALT/SGPT 17 U/L (7.0-40); AST/SGOT 20 U/L (<34); BILIRUBIN,DIRECT < 0.1 MG/DL (<0.4); BILIRUBIN,TOTAL 0.3 MG/DL (0.3-1.2); BLOOD UREA NITROGEN 11 MG/DL (9-23); CALCIUM LEVEL 9.7 MG/DL (8.3-10.6); CARBON DIOXIDE LEVEL 23 MMOL/L (20-31); CHLORIDE LEVEL 109 MMOL/L (98-107); CREATININE FOR GFR 0.65 MG/DL (0.55-1.30); GLOMERULAR FILTRATION RATE > 60.0 (>32); GLUCOSE, FASTING 100 MG/DL (74-106); POTASSIUM SERUM 4.1 MMOL/L (3.5-5.1); SODIUM LEVEL 141 MMOL/L (136-145); TOTAL PROTEIN 7.3 G/DL (5.7-8.2)
[2024-05-23 17:38] LABS: THYROID STIMULATING HORMONE 5.957 uIU/ML (0.55-4.78)
[2024-05-23 17:39] LABS: VITAMIN B12 LEVEL 957 PG/ML (211-911)
[2024-05-23 17:46] LABS: FOLATE 11.95 NG/ML (>5.4)
== END ==
LOC: M WUC 10:21
PROVIDERS: ATTEND Family Medicine
DX: J44.9 Chronic obstructive pulmonary disease, unspecified (principal); F03.90 Unspecified dementia, unspecified severity, without behavioral disturbance, psychotic disturbance, mood disturbance, and anxiety; I89.0 Lymphedema, not elsewhere classified; I10 Essential (primary) hypertension; E03.9 Hypothyroidism, unspecified

== ENCOUNTER 2024-10-17 18:43 | Observation (INO) | payer MEDICARE, MEDICAID ==
[~2024-10-17] VITALS: Ht 157.5 cm; Wt 72.6 kg
[2024-10-17] MEDS: ACETAMINOPHEN *IV* 1,000 MG in IV 1 EA IV ONE (21:15)
[2024-10-17] MEDS: NS (Normal Saline) 0.9% 1,000 ML IV ONE (21:15)
[2024-10-17 22:11] LABS: BASO % 0.4 % (0.0-1.0); EOS # 0.1 10^3/uL (0.0-0.5); EOS % 0.9 % (0.0-3.0); HEMATOCRIT 41.6 % (36.0-47.0); HEMOGLOBIN 12.9 g/dl (12.0-15.5); LYMPH # 1.9 10^3/uL (1.5-5.0); LYMPH % 19.4 % (24.0-44.0); MEAN CORPUSCULAR HEMOGLOBIN 28.5 pg (27.0-33.0); MEAN CORPUSCULAR VOLUME 91.8 fl (80.0-96.0); MONO # 0.8 10^3/uL (0.0-0.8); MONO % 8.2 % (2.0-8.0); NEUTROPHILS # 6.8 10^3/uL (1.5-8.5); NEUTROPHILS % 70.6 % (36.0-66.0); PLATELET COUNT, AUTOMATED 304 10^3/uL (150-450); RED BLOOD COUNT 4.53 10^6/uL (4.00-5.40); WHITE BLOOD COUNT 9.6 10^3/uL (4.0-10.0)
[2024-10-17 23:59] LABS: LIPASE 90 U/L (12-53)
[2024-10-18 00:01] LABS: CPK CREATINE PHOSPHOKINASE 132 U/L (34-145)
[2024-10-18 00:06] LABS: ALBUMIN 3.3 G/DL (3.2-5.2); ALKALINE PHOSPHATASE 177 U/L (35-104); ALT/SGPT 24 U/L (7.0-40); AST/SGOT 23 U/L (<34); BILIRUBIN,DIRECT < 0.1 MG/DL (<0.4); BILIRUBIN,TOTAL 0.3 MG/DL (0.3-1.2); BLOOD UREA NITROGEN 21 MG/DL (9-23); CALCIUM LEVEL 8.6 MG/DL (8.3-10.6); CARBON DIOXIDE LEVEL 28 MMOL/L (20-31); CHLORIDE LEVEL 107 MMOL/L (98-107); CK-MB VALUE MASS < 1.0 NG/ML (<3.6); CREATININE FOR GFR 0.66 MG/DL (0.55-1.30); GLUCOSE, FASTING 102 MG/DL (74-106); MB/CK RELATIVE INDEX 0.75 (< OR =4); POTASSIUM SERUM 4.5 MMOL/L (3.5-5.1); SODIUM LEVEL 142 MMOL/L (136-145)
[2024-10-18 00:55] LABS: KETONE, URINE AUTO RFX NEGATIVE (NEGATIVE); MUCUS, URINE RFX SMALL (NEGATIVE); NITRITE, URINE AUTO RFX NEGATIVE (NEGATIVE); RBC, URINE AUTO RFX 0 /HPF (0-3); SQUAM EPITHELIAL CELL UR AURFX 1 /HPF (0-6)
[2024-10-18 01:03] LABS: CK-MB VALUE MASS < 1.0 NG/ML (<3.6)
[2024-10-18 01:04] LABS: CPK CREATINE PHOSPHOKINASE 144 U/L (34-145); MB/CK RELATIVE INDEX 0.69 (< OR =4)
[2024-10-18] MEDS: LORazepam 2 MG/ML 1ML VIAL IV STA (01:24)
[2024-10-18 01:27] LABS: LEUKOCYTE ESTERASE UR AUTO RFX 3+ (NEGATIVE); WBC, URINE AUTO RFX 42 /HPF (0-3)
[2024-10-18] MEDS: ALBUTEROL 90 MCG/ACT 8GM HFA INHALER INH SCH (02:00)
[2024-10-18] MEDS: NS (Normal Saline) 0.9% 1,000 ML IV SCH (02:30)
[2024-10-18] MEDS ORDERED: FURO40TA2 PO (03:25)
[2024-10-18] MEDS ORDERED: LEVO100T5 PO (03:25)
[2024-10-18] MEDS ORDERED: ALBU8.5H INH (03:25)
[2024-10-18] MEDS: cefTRIAXone SOD 2 GM in DEXTROSE 5% (D5W) ADV/MINI-BAG 50 ML IV ONE (03:31)
[2024-10-18] MEDS ORDERED: [UNRECOGNIZED DRUG - REMARK] (03:32)
[2024-10-18] MEDS ORDERED: HOME MED LIST COMPLETE! XX SCH (03:35)
[2024-10-18] MEDS ORDERED: ALBUTEROL 90 MCG/ACT 8GM HFA INHALER INH PRN (04:20)
[2024-10-18 04:40] LABS: THYROID STIMULATING HORMONE 4.173 uIU/ML (0.55-4.78)
[2024-10-18 05:11] VITALS: BP 144/58; TEMP 97.7; O2SAT 96
[2024-10-18 07:02] LABS: HEMATOCRIT 39.2 % (36.0-47.0); HEMOGLOBIN 12.2 g/dl (12.0-15.5); MEAN CORPUSCULAR HGB CONC 31.1 g/dl (32.0-36.5); MEAN CORPUSCULAR VOLUME 93.1 fl (80.0-96.0); PLATELET COUNT, AUTOMATED 257 10^3/uL (150-450); RED BLOOD COUNT 4.21 10^6/uL (4.00-5.40); WHITE BLOOD COUNT 9.7 10^3/uL (4.0-10.0)
[2024-10-18] MEDS: LEVOTHYROXINE 100MCG TABLET (0.1MG) PO SCH (07:06)
[2024-10-18 07:16] LABS: CALCIUM LEVEL 8.6 MG/DL (8.3-10.6); CREATININE FOR GFR 0.64 MG/DL (0.55-1.30); GLOMERULAR FILTRATION RATE 87.6 (>32); POTASSIUM SERUM 4.8 MMOL/L (3.5-5.1)
[2024-10-18] MEDS ORDERED: FUROSEMIDE 40 MG TAB PO SCH (09:00)
[2024-10-18] MEDS: OMEPRAZOLE 20MG CAP PO SCH (09:57)
[2024-10-18] MEDS: ENOXAPARIN 40MG/0.4ML SYRINGE (J1650 PER 10MG) SC SCH (09:57)
[2024-10-18] MEDS: CARVedilol 3.125 MG TAB PO SCH (10:07)
[2024-10-18] MEDS ORDERED: OLANZapine 2.5MG TABLET PO PRN (11:35)
[2024-10-18 12:00] VITALS: BP 163/87; TEMP 98.1
[2024-10-18] MEDS: ACETAMINOPHEN 325 MG TAB PO PRN (12:14)
[2024-10-18] MEDS: OLANZapine 2.5MG TABLET PO SCH (14:20)
[2024-10-18] MEDS: OLANZapine INTRAMUSCULAR 10MG VIAL IM PRN (19:10)
[2024-10-18 20:34] VITALS: BP 191/101; TEMP 97.3; O2SAT 95
[2024-10-18] MEDS: OLANZapine 5 MG TAB PO PRN (20:44)
[2024-10-19] MEDS: cefTRIAXone SOD 2 GM in DEXTROSE 5% (D5W) ADV/MINI-BAG 50 ML IV SCH (03:00)
[2024-10-19 03:51] VITALS: BP 183/100; TEMP 97.7; O2SAT 95
[2024-10-19 06:37] LABS: BASO % 0.4 % (0.0-1.0); EOS # 0.2 10^3/uL (0.0-0.5); EOS % 2.8 % (0.0-3.0); HEMATOCRIT 38.2 % (36.0-47.0); HEMOGLOBIN 12.1 g/dl (12.0-15.5); LYMPH # 1.3 10^3/uL (1.5-5.0); LYMPH % 16.5 % (24.0-44.0); MEAN CORPUSCULAR HEMOGLOBIN 28.9 pg (27.0-33.0); MEAN CORPUSCULAR HGB CONC 31.7 g/dl (32.0-36.5); MEAN CORPUSCULAR VOLUME 91.4 fl (80.0-96.0); MONO # 0.6 10^3/uL (0.0-0.8); MONO % 8.1 % (2.0-8.0); NEUTROPHILS # 5.7 10^3/uL (1.5-8.5); NEUTROPHILS % 71.7 % (36.0-66.0); PLATELET COUNT, AUTOMATED 277 10^3/uL (150-450); RED BLOOD COUNT 4.18 10^6/uL (4.00-5.40); WHITE BLOOD COUNT 7.9 10^3/uL (4.0-10.0)
[2024-10-19 07:08] LABS: CALCIUM LEVEL 8.7 MG/DL (8.3-10.6); CREATININE FOR GFR 0.64 MG/DL (0.55-1.30); GLOMERULAR FILTRATION RATE 87.6 (>32); POTASSIUM SERUM 4.1 MMOL/L (3.5-5.1)
[2024-10-19] MEDS: CARVedilol 12.5 MG TAB PO SCH (09:33)
[2024-10-19] MEDS: QUEtiapine FUMARATE 25 MG TAB PO SCH (09:34)
[2024-10-19 16:49] VITALS: BP 140/80
[2024-10-19 20:00] VITALS: BP 130/62; TEMP 98.4; O2SAT 96
[2024-10-19] MEDS: RAMELTEON 8 MG TAB PO SCH (20:10)
[2024-10-19] MEDS: QUEtiapine FUMARATE 50MG TAB PO SCH (20:10)
[2024-10-19] MEDS: traZODone 50 MG TAB PO SCH (20:10)
[2024-10-20 05:34] VITALS: BP 138/72; TEMP 97.5; O2SAT 95
[2024-10-20 06:07] LABS: BASO % 0.3 % (0.0-1.0); EOS # 0.2 10^3/uL (0.0-0.5); EOS % 2.5 % (0.0-3.0); HEMATOCRIT 35.4 % (36.0-47.0); HEMOGLOBIN 11.1 g/dl (12.0-15.5); LYMPH # 1.8 10^3/uL (1.5-5.0); LYMPH % 28.2 % (24.0-44.0); MEAN CORPUSCULAR HEMOGLOBIN 28.8 pg (27.0-33.0); MEAN CORPUSCULAR HGB CONC 31.4 g/dl (32.0-36.5); MEAN CORPUSCULAR VOLUME 91.9 fl (80.0-96.0); MONO # 0.6 10^3/uL (0.0-0.8); MONO % 8.6 % (2.0-8.0); NEUTROPHILS # 3.9 10^3/uL (1.5-8.5); NEUTROPHILS % 59.8 % (36.0-66.0); PLATELET COUNT, AUTOMATED 255 10^3/uL (150-450); RED BLOOD COUNT 3.85 10^6/uL (4.00-5.40); WHITE BLOOD COUNT 6.5 10^3/uL (4.0-10.0)
[2024-10-20 06:37] LABS: CALCIUM LEVEL 8.5 MG/DL (8.3-10.6); CREATININE FOR GFR 0.69 MG/DL (0.55-1.30); GLOMERULAR FILTRATION RATE 86.1 (>32); POTASSIUM SERUM 3.9 MMOL/L (3.5-5.1)
[2024-10-20 12:00] VITALS: BP 130/64; TEMP 97.7; O2SAT 95
[2024-10-20 19:56] VITALS: BP 131/67; TEMP 97.5; O2SAT 95
[2024-10-21 04:22] VITALS: BP 132/70; TEMP 97.7; O2SAT 96
[2024-10-21 04:24] VITALS: BP 132/70; TEMP 97.7
[2024-10-21 06:38] LABS: BASO % 0.5 % (0.0-1.0); EOS # 0.3 10^3/uL (0.0-0.5); EOS % 5.3 % (0.0-3.0); HEMATOCRIT 34.4 % (36.0-47.0); HEMOGLOBIN 10.8 g/dl (12.0-15.5); LYMPH # 1.8 10^3/uL (1.5-5.0); LYMPH % 29.1 % (24.0-44.0); MEAN CORPUSCULAR HEMOGLOBIN 28.6 pg (27.0-33.0); MEAN CORPUSCULAR HGB CONC 31.4 g/dl (32.0-36.5); MEAN CORPUSCULAR VOLUME 91.2 fl (80.0-96.0); MONO # 0.7 10^3/uL (0.0-0.8); MONO % 11.1 % (2.0-8.0); NEUTROPHILS # 3.3 10^3/uL (1.5-8.5); NEUTROPHILS % 53.2 % (36.0-66.0); PLATELET COUNT, AUTOMATED 244 10^3/uL (150-450); RED BLOOD COUNT 3.77 10^6/uL (4.00-5.40); WHITE BLOOD COUNT 6.2 10^3/uL (4.0-10.0)
[2024-10-21 07:14] LABS: CALCIUM LEVEL 8.4 MG/DL (8.3-10.6); CREATININE FOR GFR 0.66 MG/DL (0.55-1.30); POTASSIUM SERUM 4.4 MMOL/L (3.5-5.1)
[2024-10-21 08:29] VITALS: BP 133/71
[2024-10-21 12:00] VITALS: BP 135/72; TEMP 97.7; O2SAT 95
[2024-10-22 05:03] VITALS: BP 118/57; TEMP 97.3; O2SAT 96
[2024-10-22 05:49] LABS: BASO % 0.6 % (0.0-1.0); EOS # 0.3 10^3/uL (0.0-0.5); EOS % 6.2 % (0.0-3.0); HEMATOCRIT 33.9 % (36.0-47.0); HEMOGLOBIN 10.4 g/dl (12.0-15.5); LYMPH # 1.9 10^3/uL (1.5-5.0); LYMPH % 35.4 % (24.0-44.0); MEAN CORPUSCULAR HGB CONC 30.7 g/dl (32.0-36.5); MEAN CORPUSCULAR VOLUME 91.4 fl (80.0-96.0); MONO # 0.5 10^3/uL (0.0-0.8); MONO % 9.2 % (2.0-8.0); NEUTROPHILS # 2.6 10^3/uL (1.5-8.5); PLATELET COUNT, AUTOMATED 258 10^3/uL (150-450); RED BLOOD COUNT 3.71 10^6/uL (4.00-5.40); WHITE BLOOD COUNT 5.5 10^3/uL (4.0-10.0)
[2024-10-22 06:18] LABS: CALCIUM LEVEL 8.6 MG/DL (8.3-10.6); CREATININE FOR GFR 0.71 MG/DL (0.55-1.30); GLOMERULAR FILTRATION RATE 84.3 (>32); POTASSIUM SERUM 4.4 MMOL/L (3.5-5.1)
[2024-10-22] MEDS: OLANZapine 2.5MG TABLET PO PRN (21:19)
[2024-10-23 05:29] VITALS: BP 171/73; TEMP 97.2; O2SAT 96
[2024-10-23 07:18] LABS: BASO % 0.6 % (0.0-1.0); EOS # 0.4 10^3/uL (0.0-0.5); EOS % 6.3 % (0.0-3.0); HEMATOCRIT 38.3 % (36.0-47.0); HEMOGLOBIN 12.1 g/dl (12.0-15.5); LYMPH # 1.5 10^3/uL (1.5-5.0); LYMPH % 24.2 % (24.0-44.0); MEAN CORPUSCULAR HEMOGLOBIN 28.6 pg (27.0-33.0); MEAN CORPUSCULAR HGB CONC 31.6 g/dl (32.0-36.5); MEAN CORPUSCULAR VOLUME 90.5 fl (80.0-96.0); MONO # 0.7 10^3/uL (0.0-0.8); MONO % 10.3 % (2.0-8.0); NEUTROPHILS # 3.6 10^3/uL (1.5-8.5); NEUTROPHILS % 57.5 % (36.0-66.0); PLATELET COUNT, AUTOMATED 279 10^3/uL (150-450); RED BLOOD COUNT 4.23 10^6/uL (4.00-5.40); WHITE BLOOD COUNT 6.3 10^3/uL (4.0-10.0)
[2024-10-23 07:52] LABS: CALCIUM LEVEL 9.1 MG/DL (8.3-10.6); CREATININE FOR GFR 0.67 MG/DL (0.55-1.30); GLOMERULAR FILTRATION RATE 86.7 (>32); MAGNESIUM LEVEL 2.2 MG/DL (1.8-2.4); POTASSIUM SERUM 4.7 MMOL/L (3.5-5.1)
[2024-10-24 04:39] VITALS: BP 126/49; TEMP 97.5; O2SAT 96
[2024-10-24 06:15] LABS: BASO % 0.6 % (0.0-1.0); EOS # 0.4 10^3/uL (0.0-0.5); EOS % 5.9 % (0.0-3.0); HEMATOCRIT 34.5 % (36.0-47.0); LYMPH # 2.2 10^3/uL (1.5-5.0); LYMPH % 34.7 % (24.0-44.0); MEAN CORPUSCULAR HEMOGLOBIN 28.9 pg (27.0-33.0); MEAN CORPUSCULAR HGB CONC 31.9 g/dl (32.0-36.5); MEAN CORPUSCULAR VOLUME 90.8 fl (80.0-96.0); MONO # 0.7 10^3/uL (0.0-0.8); MONO % 10.6 % (2.0-8.0); NEUTROPHILS # 3.1 10^3/uL (1.5-8.5); NEUTROPHILS % 47.6 % (36.0-66.0); PLATELET COUNT, AUTOMATED 265 10^3/uL (150-450); WHITE BLOOD COUNT 6.4 10^3/uL (4.0-10.0)
[2024-10-24 06:32] LABS: CREATININE FOR GFR 0.7 MG/DL (0.55-1.30); GLOMERULAR FILTRATION RATE 85.8 (>32); MAGNESIUM LEVEL 2.2 MG/DL (1.8-2.4); POTASSIUM SERUM 4.4 MMOL/L (3.5-5.1)
[2024-10-24 10:30] VITALS: BP 121/56; TEMP 97.7
[2024-10-25 03:58] VITALS: BP 145/73; TEMP 97.5; O2SAT 96
[2024-10-25 06:09] LABS: BASO % 0.5 % (0.0-1.0); EOS # 0.3 10^3/uL (0.0-0.5); EOS % 5.9 % (0.0-3.0); HEMATOCRIT 37.5 % (36.0-47.0); HEMOGLOBIN 11.5 g/dl (12.0-15.5); LYMPH # 2.2 10^3/uL (1.5-5.0); LYMPH % 39.5 % (24.0-44.0); MEAN CORPUSCULAR HEMOGLOBIN 28.6 pg (27.0-33.0); MEAN CORPUSCULAR HGB CONC 30.7 g/dl (32.0-36.5); MEAN CORPUSCULAR VOLUME 93.3 fl (80.0-96.0); MONO # 0.5 10^3/uL (0.0-0.8); MONO % 9.3 % (2.0-8.0); NEUTROPHILS # 2.5 10^3/uL (1.5-8.5); NEUTROPHILS % 44.1 % (36.0-66.0); PLATELET COUNT, AUTOMATED 292 10^3/uL (150-450); RED BLOOD COUNT 4.02 10^6/uL (4.00-5.40); WHITE BLOOD COUNT 5.6 10^3/uL (4.0-10.0)
[2024-10-25 06:40] LABS: CALCIUM LEVEL 9.2 MG/DL (8.3-10.6); CREATININE FOR GFR 0.74 MG/DL (0.55-1.30); GLOMERULAR FILTRATION RATE 80.2 (>32); MAGNESIUM LEVEL 2.2 MG/DL (1.8-2.4); POTASSIUM SERUM 4.4 MMOL/L (3.5-5.1)
[2024-10-25 12:00] VITALS: BP 146/71; TEMP 98.2; O2SAT 91
[2024-10-25 19:46] VITALS: BP 168/91; TEMP 97.5; O2SAT 98
[2024-10-26 04:08] VITALS: BP 133/74; TEMP 97.7; O2SAT 95
[2024-10-27 05:37] VITALS: BP 136/69; TEMP 97.5; O2SAT 97
[2024-10-27 08:23] VITALS: BP 138/69
[2024-10-28 04:35] VITALS: BP 132/62; TEMP 96.7; O2SAT 95
[2024-10-29 04:39] VITALS: BP 133/67; TEMP 97.5; O2SAT 96
[2024-10-29] MEDS: HALOPERIDOL LACTATE 5MG/ML VIAL IM ONE (14:37)
[2024-10-30 08:58] VITALS: BP 168/87
[2024-10-30] MEDS ORDERED: OLAN2.5T53 PO (10:20)
[2024-10-30] MEDS ORDERED: RAME8TAB2 PO (10:20)
[2024-10-30] MEDS ORDERED: TRAZ-252 PO (10:20)
[2024-10-30] MEDS ORDERED: CARV12.5 PO (10:20)
[2024-10-30] MEDS ORDERED: QUET50TA4 PO (10:20)
[2024-10-30] MEDS ORDERED: QUET1TAB17 PO (10:20)
== END 2024-10-30 11:30 ==
LOC: EDBD 18:43 → M ED 18:43 → M ED INP 18:44 → INTOOBSV 10-18 02:29 → UNDOADMIN 10-18 02:29 → M ED INP 10-18 02:29 → M MS5PR 10-18 04:55
PROVIDERS: ADMIT Student in an Organized Health Care Education/Training Program; ATTEND Internal Medicine
DX: G93.40 Encephalopathy, unspecified (principal); G31.83 Neurocognitive disorder with Lewy bodies; F03.90 Unspecified dementia, unspecified severity, without behavioral disturbance, psychotic disturbance, mood disturbance, and anxiety; N39.0 Urinary tract infection, site not specified; W01.0XXA Fall on same level from slipping, tripping and stumbling without subsequent striking against object, initial encounter; E78.5 Hyperlipidemia, unspecified; I10 Essential (primary) hypertension; E03.9 Hypothyroidism, unspecified; Z79.899 Other long term (current) drug therapy; Z79.51 Long term (current) use of inhaled steroids; M25.512 Pain in left shoulder; M25.569 Pain in unspecified knee
CPT/HCPCS: 36415; 70450; 71045; 72125; 73010; 73030; 73060; 73564; 80048; 80076; 81001; 82550; 82553; 83605; 83690; 83735; 84443; 84484; 85025; 85027; 87040; 87088; 87186; 93005; 93041; 93970; 96365; 96366; 96372; 96375; 97116; 97161; 97165; 97530; 99285; G0378; J0131; J0696; J1650; J2060; J2359